=== PATIENT | female | born 2005 | race Two or more races ===

== ENCOUNTER 2024-04-01 18:52 | Emergency (ER) | payer BC, SELFPAY ==
[2024-04-01 18:55] VITALS: BP 116/77; BMI 20.7
--- NOTE | 2024-04-01 19:52 | ED.GENMED ---
History of Present Illness
General
Chief Complaint: Headache
Source: patient
Exam Limitations: none
Time Seen by Provider: 04/01/24 19:38
History of Present Illness
History of Present Illness:
This is a 18 year old female that comes in with c/o left sided headache pain. States that this has been going on all week. States that she has tried Tylenol and ibuprofen and nothing is helping. States that it goes form the forehead to the back on
the left side. States that it is better in the morning and night but the middle part of the day is the worse. Denies any falls or injury. States that she feels lightheaded. Patient is mid menstral cycle. Denies any fever, chills, chest pain, SOB,
abd pain, nausea, vomiting, diarrhea, urinary burning.
Past History
Past History
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
ED Past Surgical History: Other (Cranial Plate left head, )
Social History
Tobacco: Non-smoker
Alcohol: None
Personal: Single
Living: with family
Review of Systems
Review of Systems
All Other Systems: ROS reviewed and negative except as documented in HPI and ROS
Constitutional: Reports no symptoms; Denies fever or chills
EENT: Reports no symptoms
Respiratory: Reports no symptoms; Denies cough or trouble breathing
Cardiac: Reports no symptoms; Denies chest pain
ABD/GI: Reports no symptoms; Denies abdominal pain, nausea, vomiting or diarrhea
: Reports no symptoms; Denies dysuria, frequency or urgency
Musculoskeletal: Reports no symptoms
Skin: Reports no symptoms
Neurological: Reports dizzy (occasionally), headache and other (Lightheaded)
Psychiatric: Reports no symptoms
Phy Exam
General Physical Exam
General Presentation: well appearing and no apparent distress
General age: appears stated age
General Skin: warm and dry
General Habitus: normal
General Mental: alert
General Hydration: appears well hydrated
ENT Exam
ENT Exam: TM's normal, pharynx normal and neck supple
Eye Exam
Eye Exam: EOMI
Cardiovascular Exam
Cardiovascular Exam: regular rate/rhythm, no edema, no murmur and normal peripheral pulses
Pulmonary Exam
Pulmonary Exam: lungs clear, no respiratory distress, no rales, chest non tender, no crackles, no rhonchi, no wheezing and no cough
Gastrointestinal Exam
Gastrointestinal Exam: normal bowel sounds, non tender, soft, no organomegaly, no pulsatile mass and non distended
Musculoskeletal Exam
Musculoskeletal Exam: full ROM and no edema
Skin Exam
Skin Exam: normal color, warm/dry, no rash and no petechia
Psychiatric Exam
Psychiatric Exam: normal mood/affect
Course
Orders/Labs/Results
Orders:
Orders
04/01/24 19:49
Acetaminophen [Tylenol] 650 mg PO NOW STA
Dexamethasone Sod Phosphate [Decadron] 10 mg IV NOW STA
Ketorolac [Toradol] 30 mg IV NOW STA
Test Result ONCE
04/01/24 19:50
CT Head W/o Iv Contrast Urgent
Comment: Plate in head
Reason For Exam: left sided headache pain
04/01/24 19:51
0.9% Sodium Chloride 500 ml [Nss] 500 ml IV BOLUS
04/01/24 20:35
Complete Blood Count/With Diff Urgent
Comprehensive Metabolic Panel Urgent
HCG, Serum Qualitative Screen Urgent
Abnormal Lab Results
04/01/24
20:35
MCHC 32.5 L g/dL
(33.0-37.0)
04/01/24 20:35
04/01/24 20:35
Labs unremarkable. HCG negative.
Vital Signs
Initial and Last Documented VS:
Initial Vital Signs
Temp Pulse Resp BP Pulse Ox
98.1 F 71 16 116/77 100
04/01/24 18:55 04/01/24 18:55 04/01/24 18:55 04/01/24 18:55 04/01/24 18:55
Last Documented Vital Signs
Temp Pulse Resp BP Pulse Ox
98.1 F 71 16 116/77 100
04/01/24 18:55 04/01/24 18:55 04/01/24 18:55 04/01/24 18:55 04/01/24 18:55
MDM/Problems Addressed
Differential Diagnosis Includes:
Migraine, Dehydration.
MDM/Problems Addressed:
This is a 18 year old female that comes in with c/o left sided headache pain. Patient has a history of LCH and a cranial plate on the left side.
Will get CT- head, give IV fluids, Decadron, Toradol and Tylenol
Back to see patient. states that she is feeling much better. Encouraged patient to increased her water intake to 8-8oz glasses daily. Tylenol or Ibuprofen for headache pain. Follow up with the family doctor for further evaluation. Return with any
concerns.
Chronic conditions affecting care:
LCH-Langerhans Cell histoiocytosis
Acute Exacerbation and/or Progression of Chronic Illness:
NA
*Radiology
Radiology exam reviewed: radiology read reviewed (CT head-NO acute intgracranial abnormality noted. )
*Pulse Oximetry
Patient hypoxic: no
*EKG
Interpreted by ED Provider?: NA
Rate: EKG- N/A
*Fur Stretcher Interpretation
Rate: Fur Stretcher- N/A
*Critical Care Note
Total Time (30-74mins, 75-104mins- exclusive of procedures): Not Applicable
ED Attending Note
-
Portions of this chart may have been created with voice recognition software.� Occasional wrong word or��sound alike� substitutions may have occurred due to the inherent limitations of voice recognition software.
Discharge Plan
Departure
Patient Disposition: Home (Routine Discharge)
Date of Disposition: 04/01/24
Time of Disposition: 21:52
Patient with high blood pressure during this ER visit?: No
Condition: Good
Covid-19: Not Applicable
Discharge Problem:
Headache
Instructions: Headache, Adult (DC)
Referrals:
Michelle Gardner MD [Family Provider] - Follow up in 2-3 days
Activity Restrictions/Additional Instructions:
As discussed, your blood work is normal along with the CT of the head. You may use Tylenol 650mg every 4 hours for headache pain and Ibuprofen 600mg every 6 hours with food for any headache pain. Please increase your water intake to 8-8oz glasses
daily. Follow up with the family doctor in the next 2-3 days for recheck. IF YOU HAVE INCREASED OR CHANGING HEADACHE PAIN, OR OU HAVE ANY OTHER CONCERNS PLEASE RETURN TO THE EMERGENCY ROOM.
Interventions
Interventions:
*Risk Screen - Suicide Last Done: 04/01/24 18:55
*General Assessment Last Done: 04/01/24 18:55
*ED COVID-19 Vaccine History Last Done: 04/01/24 18:55
ED- Neurological Assessment Last Done: 04/01/24 20:00
Discharge Date and Time
Print Language: YAKUT
[2024-04-01] MEDS: TYLENOL 650 MG PO (20:28)
[2024-04-01] MEDS: TORADOL 30 MG IV (20:29)
[2024-04-01] MEDS: DECADRON 10 MG IV (20:32)
[2024-04-01] MEDS: NSS 500 IV (20:33)
[2024-04-01 20:43] LABS: % Basophils 0.5 % (0-2); % Eosinophils 2.1 % (0-6); % Immature Granulocytes 0.2 % (0-0.5); % Monocytes 6.8 % (1.7-9.3); % Neutrophils 49.4 % (42.2-75.2); Absolute Eosinophils 0.1 10^3/uL (0-0.7); Absolute Lymphocytes 2.6 10^3/uL (1.2-3.4); Absolute Monocytes 0.4 10^3/uL (0.1-0.6); Absolute Neutrophils 3.1 10^3/uL (1.4-6.5); Hematocrit 39.1 % (37.0-47.0); Hemoglobin 12.7 g/dL (12.0-16.0); Mean Corp Hgb Conc. 32.5 g/dL (33.0-37.0); Mean Corpuscular Hgb 28.4 pg (27.0-31.0); Mean Corpuscular Volume 87.5 fL (81.0-99.0); Mean Platelet Volume 9.5 fL (7.4-10.4); Nucleated Red Blood Cells % 0 %; Platelet Count 257 10^3/uL (130-400); Red Blood Cell Count 4.47 10^6/uL (4.20-5.40); Red Cell Dist. Width 12.9 % (11.5-14.5); White Blood Cell Count 6.3 10^3/uL (4.8-10.8)
[2024-04-01 20:59] LABS: HCG, Serum Qualitative Screen Negative
[2024-04-01 21:02] LABS: ALT (SGPT) 14 U/L (0-35); AST (SGOT) 26 U/L (14-36); Albumin 4.2 g/dl (3.5-5.0); Alkaline Phosphatase 48 U/L (38-126); Blood Urea Nitrogen 16 mg/dl (7-17); Calcium 9.1 mg/dl (8.4-10.2); Carbon Dioxide 25 mmol/L (22-30); Chloride 106 mmol/L (98-107); Estimated Creatinine Clearance 118 ml/min; Glucose 97 mg/dl (70-99); Potassium 4.6 mmol/L (3.5-5.1); Sodium 141 mmol/L (135-145); Total Bilirubin 0.3 mg/dl (0.2-1.3); Total Protein 7.2 g/dl (6.3-8.2); eGFR > 60.00
== END 2024-04-01 22:15 | disposition home or self-care (01) ==
LOC: EMR 18:52
PROVIDERS: Clinical Nurse Specialist Family Health; EMERGENCY PHYSICIAN Emergency Medicine; FAMILY PHYSICIAN Family Medicine
DX: R51.9 Headache, unspecified (principal)
CPT/HCPCS: 96374; 96375; 99284; 96361; 70450; 80053; 84703; 85025